=== PATIENT | female | born 1960 | race Caucasian/White ===

== ENCOUNTER → 2017-02-15 | Day surgery (SDC) | payer OTHER ==
[~2017-02-15] MED LIST: ACETAMINOPHEN/HYDROcodone 325 MG/7.5 MG TAB ONE; BUPIVACAINE HCL PF 0.25% 30 ML VIAL ONE; KETOROLAC TROMETHAMINE 30 MG/ML (IVP) VIAL IV PUSH ONE; LACTATED RINGER'S 1000 ML INJ 1,000 ML ONE; MIDAZOLAM HCL 2 MG/2 ML VIAL ONE; ONDANSETRON HCL 4 MG/2 ML VIAL IV PUSH ONE; VANCOMYCIN 500 MG VIAL ONE
--- NOTE | 2017-02-15 14:37 | TN ---
cc: PEDRO CELAYA MD DATE OF SURGERY: 02/15/2017 ATTENDING PHYSICIAN/SURGEON Dr. Celaya. 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 PROCEDURE Right wrist de Quervain's release (release first dorsal compartment). PROCEDURE IN DETAIL Informed consent was obtained. The patient was taken to the operating room and placed in the supine position on the operating table. She was administered some sedation by the anesthesiologist. A tourniquet was applied to the right arm which was not inflated during the procedure. The right arm was prepped with Betadine soap followed by Betadine paint. The patient was awake during the procedure. After the prep and drape a time-out was held and confirmed. The marking pen was utilized to map out the proposed skin incision over the first dorsal compartment. This region was infiltrated with 6 ccs of 0.5% Marcaine without epinephrine. Utilizing a scalpel, incision was made over the first dorsal compartment. Skin and subcutaneous tissue was divided. Bleeders were coagulated utilizing the Bovie. The dissection was carried down to the first dorsal compartment which was opened with a scalpel. Two tendons were easily identified within the first dorsal compartment. A third tendon was found posterior to this and was released. The patient was instructed to extend and then abduct her thumb and the tendons appear completely free. At that time the wound was irrigated and closed with 3-0 plain sutures in the subcutaneous tissue, 4-0 Nylon interrupted stitches utilizing the Allgower type stitch. Steri-Strips, 4x4s, soft roll and a volar fiberglass splint were applied. The patient tolerated the procedure well and was taken to the recovery room in stable condition. At the completion of procedure sponge count, instrument count, needle counts were all correct. Estimated blood loss was less than 10 ccs. Pedro Celaya MD BOLA/SMITH /2:04 PM /2:25 PM
== END | disposition home or self-care (01) ==
LOC: ESDC 11:44
PROVIDERS: ATTEND Orthopaedic Surgery
DX: M65.4 Radial styloid tenosynovitis [de Quervain] (principal)
CPT/HCPCS: 01810; 25000; J1885; J2250; J2405; J3010; J3370; J7120